=== PATIENT | female | born 1955 | race Caucasian/White ===

== ENCOUNTER 2024-12-29 08:57 | Outpatient (CLI) | payer MEDICARE, SELFPAY ==
--- NOTE | 2024-12-29 10:12 | P.ANES_ITS ---
Anesthesia Charges Start Date/Time Anesthesia Start Date: 12/29/24 Anesthesia Start Time: 10:06 Stop Date/Time Anesthesia Stop Date: 12/29/24 Anesthesia Stop Time: 10:36 Summary Extremes of Age - Over 70 or under 1: MDA Coding CPT Codes CPT Codes: ANES UPR GI NDSC PX NOS - 02955 ([id number]) P4 - PT W/SEV SYS DIS THREAT LIFE, QK - COURT ORDERLY 2-4 CNCRNT ANES PROC, QX - TUTOR SVC W/ MD MED DIRECTION Additional Codes: Summary - Extremes of Age - Over 70 or under 1: MDA ([id number])
--- NOTE | 2024-12-29 10:12 | W.ANESCHARGE ---
Anesthesia Charges Start Date/Time Anesthesia Start Date: 12/29/24 Anesthesia Start Time: 10:06 Stop Date/Time Anesthesia Stop Date: 12/29/24 Anesthesia Stop Time: 10:36 Summary Extremes of Age - Over 70 or under 1: MDA Coding CPT Codes CPT Codes: ANES UPR GI NDSC PX NOS - [id number] ([id number]) P4 - PT W/SEV SYS DIS THREAT LIFE, QK - GATEKEEPER 2-4 CNCRNT ANES PROC, QX - EVENTS SPECIALIST SVC W/ MD MED DIRECTION Additional Codes: Summary - Extremes of Age - Over 70 or under 1: MDA ([id number])
--- NOTE | 2024-12-29 10:35 | P.ANES_ITS ---
Anesthesia Charges Start Date/Time Anesthesia Start Date: 12/29/24 Anesthesia Start Time: 10:06 Stop Date/Time Anesthesia Stop Date: 12/29/24 Anesthesia Stop Time: 10:36 Coding CPT Codes CPT Codes: ANES UPR GI NDSC PX NOS - [id number] ([id number]) P4 - PT W/SEV SYS DIS THREAT LIFE, QK - RIVET HOLE MACHINE OPERATOR 2-4 CNCRNT ANES PROC, QX - CODING COMPLIANCE AUDITOR SVC W/ MD MED DIRECTION
--- NOTE | 2024-12-29 10:35 | W.ANESCHARGE ---
Anesthesia Charges Start Date/Time Anesthesia Start Date: 12/29/24 Anesthesia Start Time: 10:06 Stop Date/Time Anesthesia Stop Date: 12/29/24 Anesthesia Stop Time: 10:36 Coding CPT Codes CPT Codes: ANES UPR GI NDSC PX NOS - [id number] ([id number]) P4 - PT W/SEV SYS DIS THREAT LIFE, QK - CAR BUILDER 2-4 CNCRNT ANES PROC, QX - HOUSE NURSE SVC W/ MD MED DIRECTION
== END 2024-12-29 08:58 | disposition home or self-care (01) ==
LOC: OP CLINIC 09:02
PROVIDERS: PCP Physician Assistant; Visit Provider Internal Medicine Gastroenterology
DX: K21.9 Gastro-esophageal reflux disease without esophagitis (principal); R10.13 Epigastric pain; K59.00 Constipation, unspecified; Z86.0100 Personal history of colon polyps, unspecified
CPT/HCPCS: 00731; 43239; 88305; 99100; J2704; J3490